=== PATIENT | male | born 1960 | race African-American/Black ===

== ENCOUNTER 2020-01-08 14:43 | Inpatient (IN) ==
[2020-01-08 17:35] LABS: Basophils % 0.6 % (0.0-0.8); Eosinophils # 0.2 10*3/uL (0.0-0.87); Eosinophils % 2.1 % (0.00-10.9); Hematocrit 39.3 VOL% (42.0-52.0); Hemoglobin 12.4 GM/DL (14.0-18.0); Immature Granulocytes % 0.1 %; Immature Granulocytes Absolute 0.01 #; Lymphocytes # 1.7 10*3/uL (1.4-4.0); Lymphocytes % 23.9 % (21.2-54.2); Mean Corpuscular HGB Conc 31.6 GM/DL (32-36); Mean Corpuscular Volume 83.1 FL (87-102); Mean Platelet Volume 13.1 FL (9.6-12.0); Monocytes % 8.3 % (1.7-12.7); Platelet Count 211 T/CUMM (130-400); Red Blood Count 4.73 MC/CUMM (3.8-5.5); Red Cell Distribution Width 17.2 % (9.3-17.3); White Blood Count 7.2 T/CUMM (4-12)
[2020-01-08 18:03] LABS: Alanine Aminotransferase 15 U/L (16-61); Albumin 3.3 G/DL (3.4-5.0); Alkaline Phosphatase 79 U/L (45-117); Aspartate Amino Transferase 14 U/L (0-37); Bilirubin,Total < 0.39 MG/DL (0.2-1.0); Blood Urea Nitrogen 22 MG/DL (7-18); Calcium 8.8 MG/DL (8.5-10.1); Estimated Glom Filtration Rate 95 ML/MIN; Glucose 100 MG/DL (74-106); Osmolality,Calculated 275.8 MOS/KG (273-304); Total Protein 8.4 G/DL (6.4-8.3)
[2020-01-09] MEDS ORDERED: VANCOMYCIN INJ 1,000 MG in SODIUM CHLORIDE 0.9% 250 ML IV ONE (07:00)
[2020-01-09] MEDS ORDERED: ALBUTEROL 2.5 MG/3 ML NEB RESP TX PRN (11:38)
[2020-01-09] MEDS ORDERED: BISACODYL 5 MG TABLET PO PRN (11:38)
[2020-01-09] MEDS ORDERED: LACTULOSE 20 GM/30 ML UDCUP PO PRN (11:38)
[2020-01-09] MEDS ORDERED: POLYETHYLENE GLYCOL POWDER 17 GM PACK PO PRN (11:45)
[2020-01-09] MEDS ORDERED: MAGNESIUM HYDROXIDE SUSP 30 ML UDCUP PO PRN (11:45)
[2020-01-09] MEDS ORDERED: GLUCAGON 1 MG VIAL IM PRN (11:52)
[2020-01-09] MEDS ORDERED: DEXTROSE 10% 250 ML BAG IV PRN (11:52)
[2020-01-09 13:01] LABS: Risk Ratio 3.08; Thyroid Stimulating Hormone 1.07 uIU/ml (0.358-3.74); VLDL CHOLESTEROL 15.4 MG/DL
[2020-01-09] MEDS ORDERED: INSULIN REGULAR 100 UNIT/ML SUBCUT SCH (15:00)
[2020-01-09] MEDS: VANCOMYCIN INJ 1,000 MG in SODIUM CHLORIDE 0.9% 250 ML IV SCH (16:30)
[2020-01-09] MEDS: INSULIN REGULAR 100 UNIT/ML SUBCUT SCH (18:27)
[2020-01-09] MEDS: DOCUSATE SODIUM 100 MG CAPSULE PO SCH (21:49)
[2020-01-09] MEDS: lamoTRIgine 25 MG TABLET PO SCH (21:49)
[2020-01-09] MEDS: ESCITALOPRAM 10 MG TABLET PO SCH (21:49)
[2020-01-10] MEDS: VANCOMYCIN INJ 1,000 MG in SODIUM CHLORIDE 0.9% 250 ML IV SCH ×2 (04:08→17:01)
[2020-01-10 06:23] LABS: Basophils # 0.1 10*3/uL (0.0-0.2); Basophils % 0.7 % (0.0-0.8); Eosinophils # 0.2 10*3/uL (0.0-0.87); Eosinophils % 2.3 % (0.00-10.9); Hematocrit 36.7 VOL% (42.0-52.0); Hemoglobin 11.7 GM/DL (14.0-18.0); Immature Granulocytes % 0.1 %; Immature Granulocytes Absolute 0.01 #; Lymphocytes % 26.4 % (21.2-54.2); Mean Corpuscular HGB Conc 31.9 GM/DL (32-36); Mean Corpuscular Volume 82.7 FL (87-102); Mean Platelet Volume 13.3 FL (9.6-12.0); Monocytes % 7.9 % (1.7-12.7); Neutrophils % 62.6 % (38.7-73.9); Platelet Count 222 T/CUMM (130-400); Red Blood Count 4.44 MC/CUMM (3.8-5.5); Red Cell Distribution Width 17.1 % (9.3-17.3); White Blood Count 7.4 T/CUMM (4-12)
[2020-01-10 06:44] LABS: Albumin 3.2 G/DL (3.4-5.0); Bilirubin,Total 0.7 MG/DL (0.2-1.0); Calcium 8.6 MG/DL (8.5-10.1)
[2020-01-10] MEDS: DOCUSATE SODIUM 100 MG CAPSULE PO SCH ×2 (11:48→21:45)
[2020-01-10] MEDS: lamoTRIgine 25 MG TABLET PO SCH ×2 (11:48→21:45)
[2020-01-10] MEDS: FERROUS SULFATE 325 MG TABLET PO SCH (11:48)
[2020-01-10] MEDS: POTASSIUM CHLORIDE 8 MEQ CAPSULE PO SCH (11:48)
[2020-01-10] MEDS: PANTOPRAZOLE 40 MG TABLET PO SCH (11:48)
[2020-01-10] MEDS: INSULIN REGULAR 100 UNIT/ML SUBCUT SCH ×3 (11:50→18:55)
[2020-01-10] MEDS ORDERED: LIDOCAINE 1% 20 ML VIAL ONE (13:20)
[2020-01-10] MEDS ORDERED: LACTATED RINGERS 1,000 ML IV SCH (14:00)
[2020-01-10] MEDS ORDERED: VANCOMYCIN 1,000 MG VIAL ONE (14:06)
[2020-01-10] MEDS ORDERED: SODIUM CHLORIDE 0.9% 250 ML IV ONE (15:24)
[2020-01-10] MEDS ORDERED: MIDAZOLAM 2 MG/2 ML VIAL ONE (15:24)
[2020-01-10] MEDS ORDERED: propofoL 200 MG/20 ML VIAL IV ONE (15:24)
[2020-01-10] MEDS ORDERED: fentaNYL 100 MCG/2 ML VIAL ONE (15:24)
[2020-01-10] MEDS ORDERED: SODIUM CHLORIDE 0.9% 100 ML IV ONE (15:24)
[2020-01-10] MEDS: ESCITALOPRAM 10 MG TABLET PO SCH (23:01)
[2020-01-11] MEDS ORDERED: HYDROmorphone 2 MG/1 ML VIAL IV ONE (03:21)
[2020-01-11] MEDS: VANCOMYCIN INJ 1,000 MG in SODIUM CHLORIDE 0.9% 250 ML IV SCH ×2 (03:38→16:05)
[2020-01-11] MEDS ORDERED: DEXTROSE 50% 25 GM/50 ML VIAL IV PRN (06:39)
[2020-01-11] MEDS ORDERED: GLUCAGON 1 MG VIAL IM PRN (06:39)
[2020-01-11] MEDS: INSULIN REGULAR 100 UNIT/ML SUBCUT SCH ×3 (08:28→16:04)
[2020-01-11] MEDS: PANTOPRAZOLE 40 MG TABLET PO SCH (09:12)
[2020-01-11] MEDS: DOCUSATE SODIUM 100 MG CAPSULE PO SCH ×2 (09:12→21:03)
[2020-01-11] MEDS: lamoTRIgine 25 MG TABLET PO SCH ×2 (09:12→20:59)
[2020-01-11] MEDS: FERROUS SULFATE 325 MG TABLET PO SCH (09:12)
[2020-01-11] MEDS: POTASSIUM CHLORIDE 8 MEQ CAPSULE PO SCH (09:12)
[2020-01-11] MEDS: ENOXAPARIN 40 MG/0.4 ML SYRINGE SUBCUT SCH (09:16)
[2020-01-11] MEDS: ESCITALOPRAM 10 MG TABLET PO SCH (20:59)
[2020-01-12] MEDS ORDERED: ACETAMINOPHEN 325 MG TABLET PO PRN (00:32)
[2020-01-12] MEDS ORDERED: CHLORHEXIDINE 4% SOLN 118 ML BOTTLE TOP ONE (09:19)
[2020-01-12] MEDS ORDERED: SKIN HEALING OINT (AQUAPHOR) 50 GM TUBE TOP SCH (09:30)
[2020-01-12 09:31] LABS: Basophils # 0.1 10*3/uL (0.0-0.2); Basophils % 0.4 % (0.0-0.8); Eosinophils # 0.2 10*3/uL (0.0-0.87); Eosinophils % 1.8 % (0.00-10.9); Hematocrit 37.1 VOL% (42.0-52.0); Hemoglobin 11.4 GM/DL (14.0-18.0); Immature Granulocytes % 0.4 %; Immature Granulocytes Absolute 0.05 #; Lymphocytes # 1.4 10*3/uL (1.4-4.0); Lymphocytes % 11.3 % (21.2-54.2); Mean Corpuscular HGB Conc 30.7 GM/DL (32-36); Mean Corpuscular Volume 84.7 FL (87-102); Mean Platelet Volume 12.3 FL (9.6-12.0); Monocytes % 8.4 % (1.7-12.7); Neutrophils % 77.7 % (38.7-73.9); Platelet Count 183 T/CUMM (130-400); Red Blood Count 4.38 MC/CUMM (3.8-5.5); Red Cell Distribution Width 17.2 % (9.3-17.3); White Blood Count 12.8 T/CUMM (4-12)
[2020-01-12] MEDS: DOCUSATE SODIUM 100 MG CAPSULE PO SCH ×2 (09:38→22:57)
[2020-01-12] MEDS: POTASSIUM CHLORIDE 8 MEQ CAPSULE PO SCH (09:38)
[2020-01-12] MEDS: PANTOPRAZOLE 40 MG TABLET PO SCH (09:38)
[2020-01-12] MEDS: lamoTRIgine 25 MG TABLET PO SCH ×2 (09:38→22:57)
[2020-01-12] MEDS: FERROUS SULFATE 325 MG TABLET PO SCH (09:38)
[2020-01-12] MEDS: INSULIN REGULAR 100 UNIT/ML SUBCUT SCH ×3 (09:38→22:20)
[2020-01-12] MEDS: ENOXAPARIN 40 MG/0.4 ML SYRINGE SUBCUT SCH (09:38)
[2020-01-12 09:51] LABS: Calcium 8.3 MG/DL (8.5-10.1); Osmolality,Calculated 271.2 MOS/KG (273-304)
[2020-01-12] MEDS: VANCOMYCIN INJ 1,000 MG in SODIUM CHLORIDE 0.9% 250 ML IV SCH (09:59)
[2020-01-12] MEDS: BACITRACIN OINT 0.9 GM PACK TOP SCH (14:08)
[2020-01-12] MEDS: ESCITALOPRAM 10 MG TABLET PO SCH (22:57)
[2020-01-13] MEDS: VANCOMYCIN INJ 1,000 MG in SODIUM CHLORIDE 0.9% 250 ML IV SCH ×2 (05:35→21:59)
[2020-01-13] MEDS: INSULIN REGULAR 100 UNIT/ML SUBCUT SCH ×3 (08:19→16:57)
[2020-01-13] MEDS: FERROUS SULFATE 325 MG TABLET PO SCH (09:05)
[2020-01-13] MEDS: lamoTRIgine 25 MG TABLET PO SCH ×2 (09:05→21:59)
[2020-01-13] MEDS: ENOXAPARIN 40 MG/0.4 ML SYRINGE SUBCUT SCH (09:05)
[2020-01-13] MEDS: POTASSIUM CHLORIDE 8 MEQ CAPSULE PO SCH (09:05)
[2020-01-13] MEDS: PANTOPRAZOLE 40 MG TABLET PO SCH (09:05)
[2020-01-13] MEDS: DOCUSATE SODIUM 100 MG CAPSULE PO SCH ×2 (09:05→21:59)
[2020-01-13] MEDS: BACITRACIN OINT 0.9 GM PACK TOP SCH (09:06)
[2020-01-13] MEDS ORDERED: PIPERACILLIN/TAZOBACTAM 3,375 MG in SODIUM CHLORIDE 0.9% 100 ML IV SCH (10:30)
[2020-01-13] MEDS: ERTAPENEM 1,000 MG in SODIUM CHLORIDE 0.9% 100 ML IV SCH (17:19)
[2020-01-13] MEDS: FLUCONAZOLE INJ 100 MG in IV BAG 1 EACH IV SCH (17:19)
[2020-01-13] MEDS: ESCITALOPRAM 10 MG TABLET PO SCH (21:59)
[2020-01-14] MEDS: POTASSIUM CHLORIDE 8 MEQ CAPSULE PO SCH (09:48)
[2020-01-14] MEDS: PANTOPRAZOLE 40 MG TABLET PO SCH (09:49)
[2020-01-14] MEDS: INSULIN REGULAR 100 UNIT/ML SUBCUT SCH ×3 (09:49→17:18)
[2020-01-14] MEDS: lamoTRIgine 25 MG TABLET PO SCH ×2 (09:49→20:58)
[2020-01-14] MEDS: BACITRACIN OINT 0.9 GM PACK TOP SCH (09:49)
[2020-01-14] MEDS: DOCUSATE SODIUM 100 MG CAPSULE PO SCH ×2 (09:49→20:58)
[2020-01-14] MEDS: FERROUS SULFATE 325 MG TABLET PO SCH (09:49)
[2020-01-14] MEDS: ENOXAPARIN 40 MG/0.4 ML SYRINGE SUBCUT SCH (09:49)
[2020-01-14] MEDS ORDERED: SODIUM PHOSPHATE ENEMA 133 ML BOTTLE RECTAL PRN (15:36)
[2020-01-14] MEDS: VANCOMYCIN INJ 1,000 MG in SODIUM CHLORIDE 0.9% 250 ML IV SCH (16:30)
[2020-01-14] MEDS: ERTAPENEM 1,000 MG in SODIUM CHLORIDE 0.9% 100 ML IV SCH (18:28)
[2020-01-14] MEDS: FLUCONAZOLE INJ 100 MG in IV BAG 1 EACH IV SCH (20:57)
[2020-01-14] MEDS: ESCITALOPRAM 10 MG TABLET PO SCH (20:58)
[2020-01-15] MEDS: POTASSIUM CHLORIDE 8 MEQ CAPSULE PO SCH (08:21)
[2020-01-15] MEDS: ENOXAPARIN 40 MG/0.4 ML SYRINGE SUBCUT SCH (08:21)
[2020-01-15] MEDS: FERROUS SULFATE 325 MG TABLET PO SCH (08:22)
[2020-01-15] MEDS: BACITRACIN OINT 0.9 GM PACK TOP SCH (08:22)
[2020-01-15] MEDS: PANTOPRAZOLE 40 MG TABLET PO SCH (08:22)
[2020-01-15] MEDS: DOCUSATE SODIUM 100 MG CAPSULE PO SCH (08:22)
[2020-01-15] MEDS: lamoTRIgine 25 MG TABLET PO SCH (08:22)
[2020-01-15] MEDS: INSULIN REGULAR 100 UNIT/ML SUBCUT SCH ×2 (08:22→12:00)
[2020-01-15] MEDS: ERTAPENEM 1,000 MG in SODIUM CHLORIDE 0.9% 100 ML IV SCH (08:52)
[2020-01-15] MEDS ORDERED: FLUCONAZOLE 200 MG TABLET PO SCH (09:00)
[2020-01-15] MEDS ORDERED: DOXYCYCLINE HYCLATE 100 MG CAPSULE PO SCH (09:00)
[2020-01-15 09:20] LABS: Basophils # 0.1 10*3/uL (0.0-0.2); Basophils % 0.5 % (0.0-0.8); Eosinophils # 0.3 10*3/uL (0.0-0.87); Eosinophils % 2.8 % (0.00-10.9); Hematocrit 26.7 VOL% (42.0-52.0); Immature Granulocytes % 0.4 %; Immature Granulocytes Absolute 0.04 #; Lymphocytes # 1.2 10*3/uL (1.4-4.0); Mean Corpuscular HGB Conc 31.1 GM/DL (32-36); Mean Platelet Volume 12.4 FL (9.6-12.0); Monocytes % 6.1 % (1.7-12.7); Neutrophils % 79.2 % (38.7-73.9); Platelet Count 181 T/CUMM (130-400); Red Cell Distribution Width 17.2 % (9.3-17.3); White Blood Count 10.7 T/CUMM (4-12)
[2020-01-15 09:26] LABS: Hemoglobin 8.3 GM/DL (14.0-18.0); Red Blood Count 3.14 MC/CUMM (3.8-5.5)
[2020-01-15 09:38] LABS: Calcium 8.4 MG/DL (8.5-10.1); Osmolality,Calculated 271.8 MOS/KG (273-304)
[2020-01-15 12:05] VITALS: BP 125/70
== END 2020-01-15 13:30 | DRG 907 ==
LOC: SUATTDRO 15:31 → N.3E 15:31
PROVIDERS: ADMIT Internal Medicine; ATTEND Internal Medicine